=== PATIENT | male | born 1960 | race Caucasian/White ===

== ENCOUNTER → 2021-01-16 | Outpatient (CLI) | payer BC ==
[~2021-01-16] MED LIST: PREDNISONE20 MG PO; SYNTHROID0.075 MG/T PO; VICODIN 5/5001 UDTAB PO; ZITHROMAX 250M250 MG PO
== END ==
LOC: COL.RAD 13:46
DX: N13.2 Hydronephrosis with renal and ureteral calculous obstruction (principal)
CPT/HCPCS: Q9967

== ENCOUNTER 2023-07-29 12:39 | Day surgery (SDC) | payer BC ==
[2023-07-29] VITALS (10 sets, daily range): BP systolic 108–124; BP diastolic 69–78; PULSE 67–86; TEMP 97.1
[2023-07-29] MEDS ORDERED: SYNTHROID0.088 MG/T PO (12:46)
[2023-07-29] MEDS ORDERED: ASPIRIN E.C. 8181 MG PO (12:59)
[2023-07-29 13:17] LABS: HEMATOCRIT 41.8 % (42.0-52.0); HEMOGLOBIN 13.8 g/dl (13.5-18.0); MEAN CELL VOLUME 78 fl (80.0-100.0); MEAN CORPUSCULAR HEMOGLOBIN 26 pg (27-31); MEAN CORPUSCULAR HGB CONC 33 g/dl (33.0-37.0); MEAN PLATELET VOLUME 10.1 fl (7.4-10.4); PLATELET COUNT 245 K/mm3 (130-400); RED BLOOD COUNT 5.39 M/mm3 (4.20-5.60); REDCELL DISTRIBUTION WIDTH-CV 15.6 % (11.5-14.5)
[2023-07-29 13:24] LABS: INR 1.1 (0.8-3.0); PROTHROMBIN TIME 11.7 SECONDS (9.7-12.8)
[2023-07-29 13:27] LABS: PARTIAL THROMBOPLASTIN TIME 27.8 SECONDS (26.0-37.0)
[2023-07-29 13:33] LABS: CALCIUM 9.4 mg/dL (8.4-10.2); CREATININE, serum 1.25 mg/dL (0.72-1.25); POTASSIUM 4.2 mmol/L (3.5-4.5)
[2023-07-29 14:04] LABS: CHOLESTEROL RISK RATIO 3.2
--- NOTE | 2023-07-29 15:06 | NUR ---
SEE MERGE PAPER CHART FOR PROCEDURE LOG INCLUDING VITALS.
--- NOTE | 2023-07-29 19:56 | NUR ---
Pt ambulated to [facility] scheduled for a C. IV started, labs drawn. EKG done. Meds and HX reviewed with the pt. Consent form for the [facility] signed. Pt was taken to skilled laborer for the procedure. Post procedure pt was brought back to [facility]. Offered something to eat and drink, pt accepted. A cranberry juice was given to the pt, and a meal was ordered. Right radial site clean, dry, and intact. Pt was bedrest for 2 hrs at the start of hr 3 air was released from the band 2 mls about every 15 minutes. Once all the air was released the radial site was assessed. Site clean, dry. and intact. A band-aid was applied and the deflated radial band was reapplied as a reminder to limit wrist use. Pt was given discharge education and instructions. No questions. Pt will exit the unit by wheelchair to friends car.
== END 2023-07-29 20:16 | disposition home or self-care (01) ==
LOC: COL.CAR 12:39
PROVIDERS: Internal Medicine Cardiovascular Disease
DX: I20.0 Unstable angina (principal); E03.8 Other specified hypothyroidism
CPT/HCPCS: J1644; J3010